=== PATIENT | male | born 1955 | race Caucasian/White ===

== ENCOUNTER → 2016-11-12 | Outpatient (CLI) | payer BC | LOC: BMCIMAGING 13:22 | PROVIDERS: ATTEND Internal Medicine | DX: R91.1 Solitary pulmonary nodule (principal) ==

== ENCOUNTER → 2016-11-24 | Outpatient (CLI) | payer BC ==
[~2016-11-24] MED LIST: IOPAMIDOL (ISOVUE-300) 100 ML BTL IV ONE
== END ==
LOC: FIMAGING 10:02
PROVIDERS: ATTEND Internal Medicine
DX: R91.1 Solitary pulmonary nodule (principal); J98.4 Other disorders of lung; K76.9 Liver disease, unspecified
CPT/HCPCS: Q9967